=== PATIENT | male | born 1965 | race Caucasian/White ===

== ENCOUNTER 2023-11-21 11:42 | Emergency (ER) | payer OTHER ==
[2023-11-21] MEDS ORDERED: Ibuprofen 800 MG TAB ONE (12:24)
== END 2023-11-21 13:15 | disposition home or self-care (01) ==
LOC: BURERS 11:42
DX: S82.432A Displaced oblique fracture of shaft of left fibula, initial encounter for closed fracture (principal); S93.402A Sprain of unspecified ligament of left ankle, initial encounter; I10 Essential (primary) hypertension; E11.9 Type 2 diabetes mellitus without complications; Z79.84 Long term (current) use of oral hypoglycemic drugs; X58.XXXA Exposure to other specified factors, initial encounter